=== PATIENT | female | born 1945 | race Caucasian/White ===

== ENCOUNTER 2017-01-11 10:19 | Outpatient (RCR) | payer MEDICARE ==
[~2017-01-11] VITALS: Ht 152.4 cm; Wt 64.4 kg
== END 2017-01-26 02:42 | disposition home or self-care (01) ==
LOC: DSME 10:19
PROVIDERS: ATTEND Pediatrics
DX: E11.9 Type 2 diabetes mellitus without complications; I10 Essential (primary) hypertension

== ENCOUNTER 2018-06-05 08:45 | Outpatient (CLI) | payer MEDICARE ==
[~2018-06-05] VITALS: Ht 149.9 cm; Wt 63.5 kg
[2018-06-05] MEDS ORDERED: POTA10TA10 PO (12:42)
[2018-06-05] MEDS ORDERED: SIMV20TA3 PO (12:42)
[2018-06-05] MEDS ORDERED: FOLI0.8T PO (12:42)
[2018-06-05] MEDS ORDERED: MULT-192 PO (12:42)
[2018-06-05] MEDS ORDERED: AMLO5TAB9 PO (12:42)
[2018-06-05] MEDS ORDERED: METO-395 PO (12:42)
[2018-06-05] MEDS ORDERED: CHOL200012 PO (12:42)
[2018-06-05] MEDS ORDERED: MAGN400T39 PO (12:42)
[2018-06-05] MEDS ORDERED: ASPI-586 PO (12:42)
[2018-06-05] MEDS ORDERED: NFBIOT1000 PO (12:42)
[2018-06-05] MEDS ORDERED: LOSA1TAB23 PO (12:42)
== END 2018-06-05 12:43 | disposition home or self-care (01) ==
LOC: PREOP 08:45
PROVIDERS: ATTEND Surgery
DX: Z01.818 Encounter for other preprocedural examination (principal)

== ENCOUNTER 2018-06-10 12:59 | Day surgery (SDC) | payer MEDICARE ==
[~2018-06-10] VITALS: Ht 149.9 cm; Wt 63.5 kg
[~2018-06-10 12:59] MED LIST: AMLO5TAB9 PO; ASPI-586 PO; CHOL200012 PO; FOLI0.8T PO; LOSA1TAB23 PO; MAGN400T39 PO; METO-395 PO; MULT-192 PO; NFBIOT1000 PO; POTA10TA10 PO; SIMV20TA3 PO
[2018-06-10] MEDS ORDERED: LACTATED RINGERS 1,000 ML IV ONE (13:04)
--- OUTSIDE RECORDS SUMMARY | 2018-06-10 13:04 | XMS REPORT | CCD ---
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 Name Role Phone PP Unavailable CCM Unavailable Summary Purpose Interface Exchange Insurance Providers Payer name Policy type / Coverage type Covered democrat ID Effective Begin Date Effective End Date WPS Medicare Part B Medicare Part B [id number] 2018 Unknown AETNA Medicare Part B [id number] Unknown Family history Sister Diagnosis Age At Onset Diabetes mellitus Type 2 Unknown Father Diagnosis Age At Onset Arthritis Unknown Mother Diagnosis Age At Onset Arthritis Unknown Social History Social History Element Codes Description Effective Dates Marital status Unknown Bill 02/25/2018 Number of children Unknown 2 3 pregnancies- 1 miscarriage 02/25/2018 Employment Unknown Retired 02/25/[address]: 607328057 Never smoker 02/25/[address]: 112654 Currently drinks alcohol 02/25/2018 Frequency of drinks SNOMED CT: 321469072 1-4 drinks per week 02/25/2018 Allergies, Adverse Reactions, Alerts Substance Reaction Codes Entered Date Inactivated Date Status * OTHER REACTION - SEE ANSWER BOX nausea Unknown 02/25/2018 No Inactive Date Active Past Medical History Illness Codes Condition Status Onset Date Resolved Date Dysphagia, pharyngoesophageal phase ICD-9: 787.24 ICD-10: R13.14 Active 05/22/2018 Unknown Impacted cerumen, right ear ICD-9: 380.4 ICD-10: H61.21 Active 02/26/2018 Unknown Diabetes Unknown Active 02/25/2018 Unknown Cough ICD-9: 786.2 ICD-10: R05 Active 02/25/2018 Unknown Essential (primary) hypertension ICD-9: 401.1 ICD-10: I10 Active 02/25/2018 Unknown Type 2 diabetes mellitus without complications ICD-9: 250.00 ICD-10: E11.9 Active 02/25/2018 Unknown Problems Condition Codes Effective Dates Condition Status Dysphagia, pharyngoesophageal phase ICD-9: 787.24 ICD-10: R13.14 05/22/2018 Active Impacted cerumen, right ear ICD-9: 380.4 ICD-10: H61.21 02/26/2018 Active Diabetes Unknown 02/25/2018 Active Cough ICD-9: 786.2 ICD-10: R05 02/25/2018 Active Essential (primary) hypertension ICD-9: 401.1 ICD-10: I10 02/25/2018 Active Type 2 diabetes mellitus without complications ICD-9: 250.00 ICD-10: E11.9 02/25/2018 Active Medications Medication Codes Instructions Start Date Stop Date Status Fill Instructions potassium chloride ER 10 mEq capsule,extended release RxNorm: 377944 6 Capsule(s) PO daily except Mon and Fri take 7 05/28/2018 No Stop Date Active Phenergan-Codeine 6.25 mg-10 mg/5 mL syrup RxNorm: 633936 5-10 Milliliter(s) PO Q6 as needed cough 02/25/2018 No Stop Date Active metoprolol succinate ER 100 mg tablet,extended release 24 hr RxNorm: 820984 2 Tablet(s) PO daily 02/25/2018 03/26/2018 Inactive Zyrtec-D 5 mg-120 mg tablet,extended release RxNorm: 9665020 1/2 Tablet(s) PO daily 02/25/2018 02/25/2018 Inactive Sudafed 30 mg tablet RxNorm: 1573256 1 Tablet(s) PO QAM 201703/11/2018 Inactive Zyrtec 5 mg tablet RxNorm: 4637385 1 Tablet(s) PO QAM 201703/11/2018 Inactive aspirin 81 mg tablet RxNorm: 160905 2 Tablet(s) PO daily No Start Date Active amlodipine 5 mg tablet RxNorm: 575208 1 Tablet(s) PO daily No Start Date Active biotin 1 mg tablet RxNorm: 547965 1 Tablet(s) PO daily No Start Date Active omeprazole 20 mg tablet,delayed release RxNorm: 058702 1 Tablet(s) PO daily No Start Date Active simvastatin 20 mg tablet RxNorm: 718539 1 Tablet(s) PO daily No Start Date Active Multiple Vitamin, Womens tablet RxNorm: 2 gummy chews Tablet(s) PO daily No Start Date Active metformin 500 mg tablet RxNorm: 746015 3 Tablet(s) PO daily No Start Date Active losartan 100 mg-hydrochlorothiazide 25 mg tablet RxNorm: 071650 1 Tablet(s) PO daily No Start Date Active magnesium RxNorm: 1 PO daily No Start Date Active Vitamin D3 2,000 unit tablet RxNorm: 807315 1 Tablet(s) PO daily No Start Date Active folic acid 0.8 mg capsule RxNorm: 388666 1 Capsule(s) PO daily No Start Date Active Phenergan-Codeine 6.25 mg-10 mg/5 mL syrup RxNorm: 516844 5-10 Milliliter(s) PO Q6 as needed cough No Start Date 2017 Inactive potassium chloride ER 10 mEq capsule,extended release RxNorm: 353713 6 Capsule(s) PO daily No Start Date 05/27/2018 Inactive Medication Administered No Medication Administered data Immunizations No Immunization data Assessments Condition Codes Effective Dates Dysphagia, pharyngoesophageal phase ICD-10: R13.14 ICD-9: 787.24 05/22/2018 Impacted cerumen, right ear ICD-10: H61.21 ICD-9: 380.4 02/26/2018 Type 2 diabetes mellitus without complications ICD-10: E11.9 ICD-9: 250.00 02/25/2018 Cough ICD-10: R05 ICD-9: 786.2 02/25/2018 Essential (primary) hypertension ICD-10: I10 ICD-9: 401.1 02/25/2018 Reason For Visit Reason For Visit Effective Dates Notes dysphagia 05/22/2018 diabetes mellitus 02/25/2018 Results Observation Observation Code Item Item Code Result Date Tsh Ord6 TSH (3rd IS) 1.15 uIU/mL 05/23/2018 Lipid Ord30 CHOL 153 mg/dL 05/23/2018 Lipid Ord30 HDL 51.0 mg/dl 05/23/2018 Lipid Ord30 TRIG 166 mg/dL 05/23/2018 Lipid Ord30 LDL 69 mg/dL 05/23/2018 Lipid Ord30 C/HDL 3.0 Ratio 05/23/2018 Comp Metabolic Hor096 NA 142 mEq/L 05/23/2018 Comp Metabolic Ffw644 K 3.2 mEq/L 05/23/2018 Comp Metabolic Amj659 CL 103 mEq/L 05/23/2018 Comp Metabolic Qol986 CO2 29.0 mEq/L 05/23/2018 Comp Metabolic Gka132 ANION GAP 13 05/23/2018 Comp Metabolic Alj474 GLUCOSE 132 mg/dL 05/23/2018 Comp Metabolic Dqk385 Creat 0.6 mg/dL 05/23/2018 Comp Metabolic Yhh647 eGFR 108 ml/min/1.73m2 05/23/2018 Comp Metabolic Oxv143 BUN 14 mg/dL 05/23/2018 Comp Metabolic Qet145 B/C Ratio 24.1 Ratio 05/23/2018 Comp Metabolic Uxh348 CALCIUM 9.3 mg/dL 05/23/2018 Comp Metabolic Zjx529 ALK PHOS 57 U/L 05/23/2018 Comp Metabolic Qsi735 AST(SGOT) 17 U/L 05/23/2018 Comp Metabolic Cxp208 ALT(SGPT) 17 U/L 05/23/2018 Comp Metabolic Uhl890 BILI T 0.8 mg/dL 05/23/2018 Comp Metabolic Wcb581 ALBUMIN 4.5 g/dL 05/23/2018 Comp Metabolic Oxi550 TPRO 6.8 g/dL 05/23/2018 Comp Metabolic Ixw155 GLOB 2.3 g/dL 05/23/2018 Comp Metabolic Ygr138 A/G Ratio 2.0 Ratio 05/23/2018 Comp Metabolic Oxy201 Osmo 285 mOsmo 05/23/2018 Cbc With Differential Ord2 WBC 4.73 K/ul 05/23/2018 Cbc With Differential Ord2 RBC 4.03 M/ul 05/23/2018 Cbc With Differential Ord2 HGB 13.5 g/dl 05/23/2018 Cbc With Differential Ord2 Neut% 51.2 % 05/23/2018 Cbc With Differential Ord2 HCT 39.2 % 05/23/2018 Cbc With Differential Ord2 Lymph% 33.4 % 05/23/2018 Cbc With Differential Ord2 MCV 97.3 fl 05/23/2018 Cbc With Differential Ord2 MCH 33.5 pg 05/23/2018 Cbc With Differential Ord2 Jessamine% 11.0 % 05/23/2018 Cbc With Differential Ord2 MCHC 34.4 pg 05/23/2018 Cbc With Differential Ord2 Eos% 4.0 % 05/23/2018 Cbc With Differential Ord2 Baso% 0.4 % 05/23/2018 Cbc With Differential Ord2 PLT 228 K/ul 05/23/2018 Cbc With Differential Ord2 RDW 12.6 % 05/23/2018 Cbc With Differential Ord2 Neut ABS# 2.42 K/ul 05/23/2018 Cbc With Differential Ord2 Lymph ABS# 1.58 K/ul 05/23/2018 Cbc With Differential Ord2 Jessamine ABS# 0.5 K/ul 05/23/2018 Cbc With Differential Ord2 Eos ABS# 0.2 K/ul 05/23/2018 Cbc With Differential Ord2 Baso ABS# 0.0 K/ul 05/23/2018 %Hba1C Hdp653 % HbA1c 67671-9 6.1 % 05/23/2018 %Hba1C Jdt274 Gluc Ave 128 mg/dL 05/23/2018 Microalbumin Nbw799 MicroAlb 4.7 mg/dL 05/23/2018 Review of Systems System Result Effective Dates Constitutional No recent illness 2018 Constitutional No chills 05/22/2018 Constitutional No fatigue 05/22/2018 Constitutional No fever 05/22/2018 Constitutional No insomnia 05/22/2018 Constitutional No malaise 05/22/2018 Eyes No vision change 05/22/2018 Ears/Nose/Throat/Neck No dizziness 2018 Ears/Nose/Throat/Neck No dysphagia 2018 Ears/Nose/Throat/Neck No headache 2018 Ears/Nose/Throat/Neck No hearing loss Ears/Nose/Throat/Neck No nasal allergies 05/22/2018 Ears/Nose/Throat/Neck No sore throat Ears/Nose/Throat/Neck No postnasal drip 05/22/2018 Cardiovascular No chest pain/pressure Cardiovascular No dyspnea 05/22/2018 Cardiovascular No edema 05/22/2018 Cardiovascular No exercise intolerance Cardiovascular No fatigue 05/22/2018 Respiratory No chest tightness 2018 Respiratory cough 05/22/2018 Respiratory No dyspnea 05/22/2018 Respiratory No pedal edema 05/22/2018 Gastrointestinal No abdominal pain 2018 Gastrointestinal No constipation 2018 Gastrointestinal No diarrhea 05/22/2018 Gastrointestinal No gastroesophageal reflux 05/22/2018 Gastrointestinal No nausea 05/22/2018 Gastrointestinal No vomiting 05/22/2018 Dermatologic No rash 05/22/2018 Dermatologic No sores 05/22/2018 Neurologic No dizziness 05/22/2018 Neurologic No neck pain 05/22/2018 Psychiatric No anxiety 05/22/2018 Psychiatric No depression 05/22/2018 Dermatologic pigmentation change 2018 Gastrointestinal dysphagia 05/22/2018 Constitutional No recent illness 2017 Constitutional No chills 02/25/2018 Constitutional No fatigue 02/25/2018 Constitutional No fever 02/25/2018 Constitutional No insomnia 02/25/2018 Constitutional No malaise 02/25/2018 Eyes No vision change 02/25/2018 Ears/Nose/Throat/Neck No dizziness 2017 Ears/Nose/Throat/Neck No dysphagia 2017 Ears/Nose/Throat/Neck No headache 2017 Ears/Nose/Throat/Neck No hearing loss Ears/Nose/Throat/Neck No nasal allergies 02/25/2018 Ears/Nose/Throat/Neck No sore throat Ears/Nose/Throat/Neck No postnasal drip 02/25/2018 Cardiovascular No chest pain/pressure Cardiovascular No dyspnea 02/25/2018 Cardiovascular No edema 02/25/2018 Cardiovascular No exercise intolerance Cardiovascular No fatigue 02/25/2018 Respiratory No chest tightness 2017 Respiratory cough 02/25/2018 Respiratory No dyspnea 02/25/2018 Respiratory No pedal edema 02/25/2018 Gastrointestinal No abdominal pain 2017 Gastrointestinal No constipation 2017 Gastrointestinal No diarrhea 02/25/2018 Gastrointestinal No gastroesophageal reflux 02/25/2018 Gastrointestinal No nausea 02/25/2018 Gastrointestinal No vomiting 02/25/2018 Genitourinary/Nephrology No dysuria 02/25 Genitourinary/Nephrology No nocturia Genitourinary/Nephrology No urinary incontinence 02/25/2018 Musculoskeletal No stiffness 02/25/2018 Musculoskeletal No swelling 02/25/2018 Musculoskeletal No muscle weakness 2017 Musculoskeletal No myalgias 02/25/2018 Dermatologic No rash 02/25/2018 Dermatologic No sores 02/25/2018 Neurologic No dizziness 02/25/2018 Neurologic No headache 02/25/2018 Neurologic No neck pain 02/25/2018 Neurologic No syncope 02/25/2018 Psychiatric No anxiety 02/25/2018 Psychiatric No depression 02/25/2018 Dermatologic pigmentation change 2017 Physical Exam Exam Name System Name Item Name Status Result Effective Dates Notes Full Exam - General 1994 Constitutional general appearance Development: well developed 05/22/2018 None Full Exam - General 1994 Constitutional general appearance Development: appears stated age 0105/22/2018 None Full Exam - General 1994 Constitutional general appearance Hygiene/Attention to Grooming: good hygiene 05/22/2018 None Full Exam - General 1994 Eyes conjunctiva /eyelids Overall: conjunctiva clear 05/22/2018 None Full Exam - General 1994 Eyes conjunctiva /eyelids Overall: cornea clear 05/22/2018 None Full Exam - General 1994 Eyes conjunctiva /eyelids Overall: eyelids normal 05/22/2018 None Full Exam - General 1994 Eyes pupils and irises Overall: pupils equal, round, reactive to light and accomodation 05/22/2018 None Full Exam - General 1994 Ears/Nose/Throat otoscopic exam Overall: external auditory canals clear 05/22/2018 None Full Exam - General 1994 Ears/Nose/Throat otoscopic exam Tympanic membrane: tympanosclerosis 05/22/2018 None Full Exam - General 1994 Ears/Nose/Throat lips/teeth/gingiva Overall: benign lips 05/22/2018 None Full Exam - General 1994 Ears/Nose/Throat lips/teeth/gingiva Overall: normal dentition 05/22/2018 None Full Exam - General 1994 Ears/Nose/Throat oral cavity/pharynx/larynx Overall: oral mucosa clear 05/22/2018 None Full Exam - General 1994 Ears/Nose/Throat oral cavity/pharynx/larynx Overall: oropharyngeal mucosa clear 05/22/2018 None Full Exam - General 1994 Ears/Nose/Throat oral cavity/pharynx/larynx Overall: hypopharynx benign 05/22/2018 None Full Exam - General 1994 Ears/Nose/Throat oral cavity/pharynx/larynx Overall: no masses 05/22/2018 None Full Exam - General 1994 Respiratory auscultation Overall: breath sounds clear bilaterally 05/22/2018 None Full Exam - General 1994 Respiratory respiratory effort/rhythm Overall: no retractions 05/22/2018 None Full Exam - General 1994 Respiratory respiratory effort/rhythm Overall: normal rate 05/22/2018 None Full Exam - General 1994 Cardiovascular extremities Overall: no clubbing 05/22/2018 None Full Exam - General 1994 Cardiovascular auscultation of heart Overall: regular rate 05/22/2018 None Full Exam - General 1994 Cardiovascular auscultation of heart Overall: normal heart sounds 05/22/2018 None Full Exam - General 1994 Abdomen abdominal exam Overall: no tenderness 05/22/2018 None Full Exam - General 1994 Abdomen abdominal exam Overall: normal bowel sounds 05/22/2018 None Full Exam - General 1994 Musculoskeletal head and neck Overall: head atraumatic 05/22/2018 None Full Exam - General 1994 Musculoskeletal head and neck Overall: cervical spine benign 05/22/2018 None Full Exam - General 1994 Neurologic cranial nerves Overall: crainial nerves 2 - 12 grossly intact 05/22/2018 None Full Exam - General 1994 Psychiatric orientation/consciousness Overall: oriented to person, place and time 05/22/2018 None Full Exam - General 1994 Psychiatric mood and affect Overall: normal mood and affect 05/22/2018 None Full Exam - General 1994 Constitutional general appearance Development: well developed 02/25/2018 None Full Exam - General 1994 Constitutional general appearance Development: appears stated age 1002/25/2018 None Full Exam - General 1994 Constitutional general appearance Hygiene/Attention to Grooming: good hygiene 02/25/2018 None Full Exam - General 1994 Eyes conjunctiva /eyelids Overall: conjunctiva clear 02/25/2018 None Full Exam - General 1994 Eyes conjunctiva /eyelids Overall: cornea clear 02/25/2018 None Full Exam - General 1994 Eyes conjunctiva /eyelids Overall: eyelids normal 02/25/2018 None Full Exam - General 1994 Eyes pupils and irises Overall: pupils equal, round, reactive to light and accomodation 02/25/2018 None Full Exam - General 1994 Ears/Nose/Throat otoscopic exam Overall: external auditory canals clear 02/25/2018 None Full Exam - General 1994 Ears/Nose/Throat lips/teeth/gingiva Overall: benign lips 02/25/2018 None Full Exam - General 1994 Ears/Nose/Throat lips/teeth/gingiva Overall: normal dentition 02/25/2018 None Full Exam - General 1994 Ears/Nose/Throat oral cavity/pharynx/larynx Overall: oral mucosa clear 02/25/2018 None Full Exam - General 1994 Ears/Nose/Throat oral cavity/pharynx/larynx Overall: oropharyngeal mucosa clear 02/25/2018 None Full Exam - General 1994 Ears/Nose/Throat oral cavity/pharynx/larynx Overall: hypopharynx benign 02/25/2018 None Full Exam - General 1994 Ears/Nose/Throat oral cavity/pharynx/larynx Overall: no masses 02/25/2018 None Full Exam - General 1994 Respiratory auscultation Overall: breath sounds clear bilaterally 02/25/2018 None Full Exam - General 1994 Respiratory respiratory effort/rhythm Overall: no retractions 02/25/2018 None Full Exam - General 1994 Respiratory respiratory effort/rhythm Overall: normal rate 02/25/2018 None Full Exam - General 1994 Cardiovascular extremities Overall: no clubbing 02/25/2018 None Full Exam - General 1994 Cardiovascular auscultation of heart Overall: regular rate 02/25/2018 None Full Exam - General 1994 Cardiovascular auscultation of heart Overall: normal heart sounds 02/25/2018 None Full Exam - General 1994 Abdomen abdominal exam Overall: no tenderness 02/25/2018 None Full Exam - General 1994 Abdomen abdominal exam Overall: normal bowel sounds 02/25/2018 None Full Exam - General 1994 Lymphatic neck nodes Overall: anterior cervical chain benign 02/25/2018 None Full Exam - General 1994 Lymphatic neck nodes Overall: posterior cervical chain benign 02/25/2018 None Full Exam - General 1994 Musculoskeletal spine, ribs and pelvis Overall: spine benign 02/25/2018 None Full Exam - General 1994 Musculoskeletal spine, ribs and pelvis Overall: sacroiliac joint benign 02/25/2018 None Full Exam - General 1994 Musculoskeletal spine, ribs and pelvis Overall: good posture 02/25/2018 None Full Exam - General 1994 Musculoskeletal head and neck Overall: head atraumatic 02/25/2018 None Full Exam - General 1994 Musculoskeletal head and neck Overall: cervical spine benign 02/25/2018 None Full Exam - General 1994 Neurologic deep tendon reflexes Overall: deep tendon reflexes intact 02/25/2018 None Full Exam - General 1994 Neurologic cranial nerves Overall: crainial nerves 2 - 12 grossly intact 02/25/2018 None Full Exam - General 1994 Psychiatric orientation/consciousness Overall: oriented to person, place and time 02/25/2018 None Full Exam - General 1994 Psychiatric mood and affect Overall: normal mood and affect 02/25/2018 None Full Exam - General 1994 Ears/Nose/Throat otoscopic exam Tympanic membrane: tympanosclerosis 02/25/2018 None Full Exam - General 1994 Integument inspection of skin Pigmentation: hemosideran pigment changes 02/25/2018 bilateral lower legs at mid calf to ankles Procedures No Procedures data Vital Signs Date Vital 05/22/2018 Blood Pressure 1: 122/72 Code : 8480-6 BMI: 28.7 Code : 61937-8 Heart Rate 1 : 72 bpm Height: 4'11" SpO2: 97% Weight: 142 lbs 02/25/2018 Blood Pressure 1: 122/82 Code : 8480-6 BMI: 28.7 Code : 64614-6 Heart Rate 1 : 65 bpm Height: 4'11" SpO2: 98% Weight: 142 lbs Functional Status No Functional Status data History of Present Illness Symptom Name Status Result Effective Date Notes Location in the epigastric area 05/22/2018 None Quality difficulty with hard solids 05/22/2018 mostly meat but all foods cause it Quality worsening None Onset of Symptom 1 months ago 05/22/2018 None Limitation on Activities does not limit oral intake 05/22/2018 None Pertinent Findings Denies cough 05/22/2018 None Pertinent Findings emesis 05/22/2018 at times Pertinent Findings Denies heartburn 05/22/2018 None Pertinent Findings regurgitation 05/22/2018 None diabetes mellitus Quality NIDDM 02/25/2018 None diabetes mellitus Glucose monitoring occasional glucose testing 02/25/2018 weekly diabetes mellitus Pertinent Findings numbness 02/25/2018 occ to right foot toes cough Location in the throat 02/25/2018 None cough Quality intermittent 02/25/2018 None cough Onset and Resolution sudden in onset 02/25/2018 None cough Onset of Symptom 2 days ago 02/25/2018 None cough Frequency of Episodes hourly 02/25/2018 None cough Pertinent Findings Denies dyspnea 02/25/2018 None cough Pertinent Findings Denies fever 02/25/2018 None diabetes mellitus Severity mild 02/25/2018 None diabetes mellitus Quality non-insulin dependent 02/25/2018 None diabetes mellitus Test results fasting glucose 115-140 02/25/2018 in the morning diabetes mellitus Test results HgbA1c level pt does not remember the #, but it was "good" per her report 02/25/2018 the test was done in November of this year Advance Directives No Advance Directive data Encounters Encounter Performer Location Codes Date () [address] EST. PATIENT, LEVEL III Diagnosis: Dysphagia, pharyngoesophageal phase[ICD10: R13.14] [facility] MD, [facility] CPT-4: 03539 05/22/2018 ([id number]) Miscellaneous no charge Diagnosis: Impacted cerumen, right ear[ICD10: H61.21] [facility] CPT-4: 33869 02/26/2018 ([id number]) OFFICE VISIT, NEW - LEVEL 4 Diagnosis: Essential (primary) hypertension[ICD10: I10] Diagnosis: Type 2 diabetes mellitus without complications[ICD10: E11.9] Diagnosis: Cough[ICD10: R05] [facility] CPT-4: 85308 02/25/2018 Plan of Care Planned Activity Notes Codes Status Date Visit Plan: Dysphagia - worse with bolus of food - I have recommended a referral to Dr. Tsang for EGD, continue with PPI. 05/22/2018 App[facility]ment: [phone] [facility] [place] (15 min) Moderate 05/22/2018 Patient Education: Patient Medication Summary Completed 05/22/2018 Appointment: Nurse Visit 02/26/2018 Patient Education: Patient Medication Summary Completed 02/26/2018 Visit Plan: Hypertension - well controlled - continue with current medications, continue with no added salt diet. Pt has been encouraged to exercise daily. The pt has been advised to call the office if there are any acute concerns about change in blood pressure readings at home. Diabetes Mellitus - controlled - per recent FSBS reports. I have recommended for the patient to have follow up labs prior to the next office visit. The patient has been instructed to continue with current medications as previously directed, continue with regular FSBS monitoring to assure continued control of diabetes. Pt to call for any acute concerns, complaints, or if the blood glucose readings are starting to become less controlled. Hemosiderin pigment changes - recommended pt to use OTC cream to legs. Congestion - use OTC corcidin. 02/25/2018 Visit Plan: Hypertension - well controlled - continue with current medications, continue with no added salt diet. Pt has been encouraged to exercise daily. The pt has been advised to call the office if there are any acute concerns about change in blood pressure readings at home. Diabetes Mellitus - controlled - per recent FSBS reports. I have recommended for the patient to have follow up labs prior to the next office visit. The patient has been instructed to continue with current medications as previously directed, continue with regular FSBS monitoring to assure continued control of diabetes. Pt to call for any acute concerns, complaints, or if the blood glucose readings are starting to become less controlled. Hemosiderin pigment changes - recommended pt to use OTC cream to legs. Congestion - use OTC corcidin. 02/25/2018 Appointment: [facility] [phone] [facility] [place] [place] New Patient 02/25/2018 Patient Education: Patient Medication Summary Completed 02/25/2018 Patient Education: Diabetes Completed 02/25/2018 Appointment: [facility] [phone] [facility] [place] [place] New Patient 02/03/2018 Instructions Comment cream with retinol in it - higher dose retinol cream - like an overnight cream will often have higher retinol products - and you can try this to see if it will help to decrease the pigmentation on your lower legs. use corcidin HBP daily while having the cough and congestion - if not having any improvement in the next 5 days, then stop this and take 1/2 of the zyrtec D - watch your blood pressure if you do take the zyrtec and call the office or send a portal message if you have any blood pressure concerns. let us know if the cough and congestion do not improve. sign a release of information for the office to get a copy of your last blood work. . Hypertension - well controlled - continue with current medications, continue with no added salt diet. Pt has been encouraged to exercise daily. The pt has been advised to call the office if there are any acute concerns about change in blood pressure readings at home. Diabetes Mellitus - controlled - per recent FSBS reports. I have recommended for the patient to have follow up labs prior to the next office visit. The patient has been instructed to continue with current medications as previously directed, continue with regular FSBS monitoring to assure continued control of diabetes. Pt to call for any acute concerns, complaints, or if the blood glucose readings are starting to become less controlled. Hemosiderin pigment changes - recommended pt to use OTC cream to legs. Congestion - use OTC corcidin. cream with retinol in it - higher dose retinol cream - like an overnight cream will often have higher retinol products - and you can try this to see if it will help to decrease the pigmentation on your lower legs. use corcidin HBP daily while having the cough and congestion - if not having any improvement in the next 5 days, then stop this and take 1/2 of the zyrtec D - watch your blood pressure if you do take the zyrtec and call the office or send a portal message if you have any blood pressure concerns. let us know if the cough and congestion do not improve. sign a release of information for the office to get a copy of your last blood work. . Hypertension - well controlled - continue with current medications, continue with no added salt diet. Pt has been encouraged to exercise daily. The pt has been advised to call the office if there are any acute concerns about change in blood pressure readings at home. Diabetes Mellitus - controlled - per recent FSBS reports. I have recommended for the patient to have follow up labs prior to the next office visit. The patient has been instructed to continue with current medications as previously directed, continue with regular FSBS monitoring to assure continued control of diabetes. Pt to call for any acute concerns, complaints, or if the blood glucose readings are starting to become less controlled. Hemosiderin pigment changes - recommended pt to use OTC cream to legs. Congestion - use OTC corcidin. . Dysphagia - worse with bolus of food - I have recommended a referral to Dr. Tsang for EGD, continue with PPI.
--- OUTSIDE RECORDS SUMMARY | 2018-06-10 13:04 | XMS REPORT | CCD ---
Author Author [facility]aire Box Organization [facility] Address [address] [place] [address] Phone Care Team Providers Care Lead Technologist In Cytogenetics Name Role Phone PP Unavailable CCM Unavailable Summary Purpose Interface Exchange Insurance Providers Payer name Policy type / Coverage type Covered constitution party ID Effective Begin Date Effective End Date WPS Medicare Part B Medicare Part B [id number] 2018 Unknown AETNA Medicare Part B [id number] Unknown Family history Sister Diagnosis Age At Onset Diabetes mellitus Type 2 Unknown Father Diagnosis Age At Onset Arthritis Unknown Mother Diagnosis Age At Onset Arthritis Unknown Social History Social History Element Codes Description Effective Dates Marital status Unknown Bill 02/25/2018 Number of children Unknown 2 3 pregnancies- 1 miscarriage 02/25/2018 Employment Unknown Retired 02/25/[address]: 860403115 Never smoker 02/25/[address]: 151825 Currently drinks alcohol 02/25/2018 Frequency of drinks SNOMED CT: 829327520 1-4 drinks per week 02/25/2018 Allergies, Adverse [...] Start Date Stop Date Status Fill Instructions Phenergan-Codeine 6.25 mg-10 mg/5 mL syrup RxNorm: 699959 5-10 Milliliter(s) PO Q6 as needed cough 02/25/2018 No Stop Date Active metoprolol succinate ER 100 mg tablet,extended release 24 hr RxNorm: 421751 2 Tablet(s) PO daily 02/25/2018 03/26/2018 Inactive Zyrtec-D 5 mg-120 mg tablet,extended release RxNorm: 2870009 1/2 Tablet(s) PO daily 02/25/2018 02/25/2018 Inactive Sudafed 30 mg tablet RxNorm: 2638674 1 Tablet(s) PO QAM 201703/11/2018 Inactive Zyrtec 5 mg tablet RxNorm: 6241104 1 Tablet(s) PO QAM 201703/11/2018 Inactive aspirin 81 mg tablet RxNorm: 560774 2 Tablet(s) PO daily No Start Date Active amlodipine 5 mg tablet RxNorm: 279407 1 Tablet(s) PO daily No Start Date Active biotin 1 mg tablet RxNorm: 687764 1 Tablet(s) PO daily No Start Date Active omeprazole 20 mg tablet,delayed release RxNorm: 881481 1 Tablet(s) PO daily No Start Date Active simvastatin 20 mg tablet RxNorm: 513422 1 Tablet(s) PO daily No Start Date Active Multiple Vitamin, Womens tablet RxNorm: 2 gummy chews Tablet(s) PO daily No Start Date Active metformin 500 mg tablet RxNorm: 071588 3 Tablet(s) PO daily No Start Date Active losartan 100 mg-hydrochlorothiazide 25 mg tablet RxNorm: 905676 1 Tablet(s) PO daily No Start Date Active magnesium RxNorm: 1 PO daily No Start Date Active Vitamin D3 2,000 unit tablet RxNorm: 821639 1 Tablet(s) PO daily No Start Date Active potassium chloride ER 10 mEq capsule,extended release RxNorm: 625667 6 Capsule(s) PO daily No Start Date Active folic acid 0.8 mg capsule RxNorm: 396933 1 Capsule(s) PO daily No Start Date Active Phenergan-Codeine 6.25 mg-10 mg/5 mL syrup RxNorm: 584122 5-10 Milliliter(s) PO Q6 as needed cough No Start Date 2017 Inactive Medication Administered No Medication Administered data Immunizations No Immunization data Assessments Condition Codes Effective Dates Dysphagia, pharyngoesophageal phase ICD-10: R13.14 ICD-9: 787.24 05/22/2018 Impacted cerumen, right ear ICD-10: H61.21 ICD-9: 380.4 02/26/2018 Essential (primary) hypertension ICD-10: I10 ICD-9: 401.1 02/25/2018 Cough ICD-10: R05 ICD-9: 786.2 02/25/2018 Type 2 diabetes mellitus without complications ICD-10: E11.9 ICD-9: 250.00 02/25/2018 Reason For Visit Reason For Visit Effective Dates Notes dysphagia 05/22/2018 diabetes mellitus 02/25/2018 Results Observation Observation Code Item Item Code Result Date Lipid Ord30 CHOL 153 mg/dL 05/23/2018 Lipid Ord30 HDL 51.0 mg/dl 05/23/2018 Lipid Ord30 TRIG 166 mg/dL 05/23/2018 Lipid Ord30 LDL 69 mg/dL 05/23/2018 Lipid Ord30 C/HDL 3.0 Ratio 05/23/2018 Comp Metabolic Fas393 NA 142 mEq/L 05/23/2018 Comp Metabolic Pte664 K 3.2 mEq/L 05/23/2018 Comp Metabolic Qlq542 CL 103 mEq/L 05/23/2018 Comp Metabolic Pvl034 CO2 29.0 mEq/L 05/23/2018 Comp Metabolic Szn322 ANION GAP 13 05/23/2018 Comp Metabolic Bgh167 GLUCOSE 132 mg/dL 05/23/2018 Comp Metabolic Ttj773 Creat 0.6 mg/dL 05/23/2018 Comp Metabolic Ytx344 eGFR 108 ml/min/1.73m2 05/23/2018 Comp Metabolic Aii421 BUN 14 mg/dL 05/23/2018 Comp Metabolic Jkm463 B/C Ratio 24.1 Ratio 05/23/2018 Comp Metabolic Gsf639 CALCIUM 9.3 mg/dL 05/23/2018 Comp Metabolic Nuh788 ALK PHOS 57 U/L 05/23/2018 Comp Metabolic Thz604 AST(SGOT) 17 U/L 05/23/2018 Comp Metabolic Ikx765 ALT(SGPT) 17 U/L 05/23/2018 Comp Metabolic Ibw028 BILI T 0.8 mg/dL 05/23/2018 Comp Metabolic Fgj363 ALBUMIN 4.5 g/dL 05/23/2018 Comp Metabolic Bfr173 TPRO 6.8 g/dL 05/23/2018 Comp Metabolic Rit433 GLOB 2.3 g/dL 05/23/2018 Comp Metabolic Gje266 A/G Ratio 2.0 Ratio 05/23/2018 Comp Metabolic Gps517 Osmo 285 mOsmo 05/23/2018 Review of Systems System Result Effective [...] Code : 8480-6 BMI: 28.7 Code : 35441-7 Heart Rate 1 : 72 bpm Height: 4'11" SpO2: 97% Weight: 142 lbs 02/25/2018 Blood Pressure 1: 122/82 Code : 8480-6 BMI: 28.7 Code : 58199-1 Heart Rate 1 : 65 bpm Height: [...] data Encounters Encounter Performer Location Codes Date (57881) 70631 EST. PATIENT, LEVEL III Diagnosis: Dysphagia, pharyngoesophageal phase[ICD10: R13.14] Blaire Box MD, [facility] CPT-4: 30223 05/22/2018 ([id number]) Miscellaneous no charge Diagnosis: Impacted cerumen, right ear[ICD10: H61.21] [facility] Box MD, [facility] CPT-4: 91131 02/26/2018 ([id number]) OFFICE VISIT, NEW - LEVEL 4 Diagnosis: Essential (primary) hypertension[ICD10: I10] Diagnosis: Type 2 diabetes mellitus without complications[ICD10: E11.9] Diagnosis: Cough[ICD10: R05] Blaire Box MD, [facility] CPT-4: 91974 02/25/2018 Plan of Care Planned Activity Notes Codes Status Date Visit Plan: Dysphagia - worse with bolus of food - I have recommended a referral to Dr. Tsang for EGD, continue with PPI. 05/22/2018 Appointment: Blaire Box WPtel: [address] [place], [place] [id number] (15 min) Moderate 05/22/2018 Patient Education: Patient [...] corcidin. 02/25/2018 [facility]ment: [facility] [address] [facility] [place] New Patient 02/25/2018 Patient Education: Patient Medication Summary Completed 02/25/2018 Patient Education: Diabetes Completed 02/25/2018 Appointment: [facility] [address] [facility] [place] New Patient 02/03/2018 Instructions Comment cream [...]
--- OUTSIDE RECORDS SUMMARY | 2018-06-10 13:05 | XMS REPORT | CCD ---
Author Author [facility] Box Organization [facility] Address [address] [place] [address] Phone Care Team Providers Care Clock Repairer Name Role Phone PP Unavailable CCM Unavailable Summary Purpose Interface Exchange Insurance Providers Payer name Policy type / Coverage type Covered constitution party ID Effective Begin Date Effective End Date WPS Medicare Part B Medicare Part B [id number] 2018 Unknown AETNA Medicare Part B [id number] Unknown Family history Sister Diagnosis Age At Onset Diabetes mellitus Type 2 Unknown Father Diagnosis Age At Onset Arthritis Unknown Mother Diagnosis Age At Onset Arthritis Unknown Social History Social History Element Codes Description Effective Dates Marital status Unknown Bill 02/25/2018 Number of children Unknown 2 3 pregnancies- 1 miscarriage 02/25/2018 Employment Unknown Retired 02/25/[address]: 092509089 Never smoker 02/25/[address]: 086928 Currently drinks alcohol 02/25/2018 Frequency of drinks SNOMED CT: 591436590 1-4 drinks per week 02/25/2018 Allergies, Adverse [...] Phenergan-Codeine 6.25 mg-10 mg/5 mL syrup RxNorm: 133157 5-10 Milliliter(s) PO Q6 as needed cough 02/25/2018 No Stop Date Active metoprolol succinate ER 100 mg tablet,extended release 24 hr RxNorm: 839803 2 Tablet(s) PO daily 02/25/2018 03/26/2018 Inactive Zyrtec-D 5 mg-120 mg tablet,extended release RxNorm: 5062149 1/2 Tablet(s) PO daily 02/25/2018 02/25/2018 Inactive Sudafed 30 mg tablet RxNorm: 5957682 1 Tablet(s) PO QAM 201703/11/2018 Inactive Zyrtec 5 mg tablet RxNorm: 3602168 1 Tablet(s) PO QAM 201703/11/2018 Inactive aspirin 81 mg tablet RxNorm: 960154 2 Tablet(s) PO daily No Start Date Active amlodipine 5 mg tablet RxNorm: 243891 1 Tablet(s) PO daily No Start Date Active biotin 1 mg tablet RxNorm: 351685 1 Tablet(s) PO daily No Start Date Active omeprazole 20 mg tablet,delayed release RxNorm: 818940 1 Tablet(s) PO daily No Start Date Active simvastatin 20 mg tablet RxNorm: 071846 1 Tablet(s) PO daily No Start Date Active Multiple Vitamin, Womens tablet RxNorm: 2 gummy chews Tablet(s) PO daily No Start Date Active metformin 500 mg tablet RxNorm: 553010 3 Tablet(s) PO daily No Start Date Active losartan 100 mg-hydrochlorothiazide 25 mg tablet RxNorm: 970847 1 Tablet(s) PO daily No Start Date Active magnesium RxNorm: 1 PO daily No Start Date Active Vitamin D3 2,000 unit tablet RxNorm: 859811 1 Tablet(s) PO daily No Start Date Active potassium chloride ER 10 mEq capsule,extended release RxNorm: 401162 6 Capsule(s) PO daily No Start Date Active folic acid 0.8 mg capsule RxNorm: 621246 1 Capsule(s) PO daily No Start Date Active Phenergan-Codeine 6.25 mg-10 mg/5 mL syrup RxNorm: 324574 5-10 Milliliter(s) PO Q6 as needed cough [...] Notes dysphagia 05/22/2018 diabetes mellitus 02/25/2018 Results No Results data Review of Systems System Result Effective Dates [...] Code : 8480-6 BMI: 28.7 Code : 60856-2 Heart Rate 1 : 72 bpm Height: 4'11" SpO2: 97% Weight: 142 lbs 02/25/2018 Blood Pressure 1: 122/82 Code : 8480-6 BMI: 28.7 Code : 82630-9 Heart Rate 1 : 65 bpm Height: [...] Encounters Encounter Performer Location Codes Date () 54140 EST. PATIENT, LEVEL III Diagnosis: Dysphagia, pharyngoesophageal phase[ICD10: R13.14] Blaire Box MD, [facility] CPT-4: 38660 05/22/2018 ([id number]) Miscellaneous no charge Diagnosis: Impacted cerumen, right ear[ICD10: H61.21] Blaire Box MD, [facility] CPT-4: 53321 02/26/2018 (05841) OFFICE VISIT, NEW - LEVEL 4 Diagnosis: Essential (primary) hypertension[ICD10: I10] Diagnosis: Type 2 diabetes mellitus without complications[ICD10: E11.9] Diagnosis: Cough[ICD10: R05] Blaire Box MD, [facility] CPT-4: 38630 02/25/2018 Plan of Care Planned Activity Notes Codes Status Date Visit Plan: Dysphagia - worse with bolus of food - I have recommended a referral to Dr. Tsang for EGD, continue with PPI. 05/22/2018 Patient Education: Patient Medication Summary Completed [...] OTC corcidin. 02/25/2018 Appointment: Blaire Box WPtel: [facility] [place] New Patient 02/25/2018 Patient Education: Patient Medication Summary Completed 02/25/2018 Patient Education: Diabetes Completed 02/25/2018 Appointment: Blaire Box WPtel: [address] [facility] [place] New Patient 02/03/2018 Instructions Comment cream [...]
--- OUTSIDE RECORDS SUMMARY | 2018-06-10 13:05 | XMS REPORT | CCD ---
Author Author [facility] Box Organization [facility] Address [address] [place] [address] Phone Care Team Providers Care Blood Tester Name Role Phone PP Unavailable CCM Unavailable Summary Purpose Interface Exchange Insurance Providers Payer name Policy type / Coverage type Covered libertarian ID Effective Begin Date Effective End Date WPS Medicare Part B Medicare Part B [id number] 2018 Unknown AETNA Medicare Part B [id number] Unknown Family history Sister Diagnosis Age At Onset Diabetes mellitus Type 2 Unknown Father Diagnosis Age At Onset Arthritis Unknown Mother Diagnosis Age At Onset Arthritis Unknown Social History Social History Element Codes Description Effective Dates Marital status Unknown Bill 02/25/2018 Number of children Unknown 2 3 pregnancies- 1 miscarriage 02/25/2018 Employment Unknown Retired 02/25/[address]: 627738428 Never smoker 02/25/[address]: 441867 Currently drinks alcohol 02/25/2018 Frequency of drinks SNOMED CT: 393721224 1-4 drinks per week 02/25/2018 Allergies, Adverse Reactions, Alerts Substance Reaction Codes Entered Date Inactivated Date Status * OTHER REACTION - SEE ANSWER BOX nausea Unknown 02/25/2018 No Inactive Date Active Past Medical History Illness Codes Condition Status Onset Date Resolved Date Impacted cerumen, right ear ICD-9: 380.4 ICD-10: H61.21 Active 02/26/2018 Unknown Diabetes Unknown Active 02/25/2018 Unknown Cough ICD-9: 786.2 ICD-10: R05 Active 02/25/2018 Unknown Essential (primary) hypertension ICD-9: 401.1 ICD-10: I10 Active 02/25/2018 Unknown Type 2 diabetes mellitus without complications ICD-9: 250.00 ICD-10: E11.9 Active 02/25/2018 Unknown Problems Condition Codes Effective Dates Condition Status Impacted cerumen, right ear ICD-9: 380.4 ICD-10: H61.21 02/26/2018 Active Diabetes Unknown 02/25/2018 Active Cough ICD-9: 786.2 ICD-10: R05 02/25/2018 Active Essential (primary) hypertension ICD-9: 401.1 ICD-10: I10 02/25/2018 Active Type 2 diabetes mellitus without complications ICD-9: 250.00 ICD-10: E11.9 02/25/2018 Active Medications Medication Codes Instructions Start Date Stop Date Status Fill Instructions Sudafed 30 mg tablet RxNorm: 4943382 1 Tablet(s) PO QAM 201703/11/2018 Active Phenergan-Codeine 6.25 mg-10 mg/5 mL syrup RxNorm: 480474 5-10 Milliliter(s) PO Q6 as needed cough 02/25/2018 No Stop Date Active Zyrtec 5 mg tablet RxNorm: 6757105 1 Tablet(s) PO QAM 201703/11/2018 Active metoprolol succinate ER 100 mg tablet,extended release 24 hr RxNorm: 486925 2 Tablet(s) PO daily 02/25/2018 03/26/2018 Active Zyrtec-D 5 mg-120 mg tablet,extended release RxNorm: 6101884 1/2 Tablet(s) PO daily 02/25/2018 02/25/2018 Inactive aspirin 81 mg tablet RxNorm: 051528 2 Tablet(s) PO daily No Start Date Active amlodipine 5 mg tablet RxNorm: 051375 1 Tablet(s) PO daily No Start Date Active biotin 1 mg tablet RxNorm: 470115 1 Tablet(s) PO daily No Start Date Active omeprazole 20 mg tablet,delayed release RxNorm: 433692 1 Tablet(s) PO daily No Start Date Active simvastatin 20 mg tablet RxNorm: 195282 1 Tablet(s) PO daily No Start Date Active Multiple Vitamin, Womens tablet RxNorm: 2 gummy chews Tablet(s) PO daily No Start Date Active metformin 500 mg tablet RxNorm: 077322 3 Tablet(s) PO daily No Start Date Active losartan 100 mg-hydrochlorothiazide 25 mg tablet RxNorm: 822190 1 Tablet(s) PO daily No Start Date Active magnesium RxNorm: 1 PO daily No Start Date Active Vitamin D3 2,000 unit tablet RxNorm: 247480 1 Tablet(s) PO daily No Start Date Active potassium chloride ER 10 mEq capsule,extended release RxNorm: 806275 6 Capsule(s) PO daily No Start Date Active folic acid 0.8 mg capsule RxNorm: 343883 1 Capsule(s) PO daily No Start Date Active Phenergan-Codeine 6.25 mg-10 mg/5 mL syrup RxNorm: 478981 5-10 Milliliter(s) PO Q6 as needed cough No Start Date 2017 Inactive Medication Administered No Medication Administered data Immunizations No Immunization data Assessments Condition Codes Effective Dates Impacted cerumen, right ear ICD-10: H61.21 ICD-9: 380.4 02/26/2018 Type 2 diabetes mellitus without complications ICD-10: E11.9 ICD-9: 250.00 02/25/2018 Cough ICD-10: R05 ICD-9: 786.2 02/25/2018 Essential (primary) hypertension ICD-10: I10 ICD-9: 401.1 02/25/2018 Reason For Visit Reason For Visit Effective Dates Notes diabetes mellitus 02/25/2018 Results No Results data Review of Systems System Result Effective Dates Constitutional No recent illness 2017 Constitutional No [...] tympanosclerosis 02/25/2018 None Full Exam - General 1995 Integument inspection of skin Pigmentation: hemosideran pigment changes 02/25/2018 bilateral lower legs at mid calf to ankles Procedures No Procedures data Vital Signs Date Vital 02/25/2018 Blood Pressure 1: 122/82 Code : 8480-6 BMI: 28.7 Code : 48852-1 Heart Rate 1 : 65 bpm Height: 4'11" SpO2: 98% Weight: 142 lbs Functional Status No Functional Status data History of Present Illness Symptom Name Status Result Effective Date Notes diabetes mellitus Quality NIDDM 02/25/2018 None diabetes [...] Encounters Encounter Performer Location Codes Date () Miscellaneous no charge Diagnosis: Impacted cerumen, right ear[ICD10: H61.21] [facility] CPT-4: 10544 02/26/2018 ([id number]) OFFICE VISIT, NEW - LEVEL 4 Diagnosis: Essential (primary) hypertension[ICD10: I10] Diagnosis: Type 2 diabetes mellitus without complications[ICD10: E11.9] Diagnosis: Cough[ICD10: R05] [facility] CPT-4: 94464 02/25/2018 Plan of Care Planned Activity Notes Codes Status Date Patient Education: Patient Medication Summary Completed 02/26/2018 Appointment: Blaire Box WPtel: [address] [place], [place] [id number] [place] New Patient 02/25/2018 Patient Education: Patient Medication Summary Completed 02/25/2018 Patient Education: Diabetes Completed 02/25/2018 Appointment: Blaire Box WPtel: [address] [place], [place] [address] New Patient 02/03/2018 Instructions No Instructions
--- OUTSIDE RECORDS SUMMARY | 2018-06-10 13:05 | XMS REPORT | CCD ---
Author Author Blaire Box Organization [facility] Address [address] [place] [address] Phone Care Team Providers Care Sanitation Truck Driver Name Role Phone PP Unavailable CCM Unavailable Summary Purpose Interface Exchange Insurance Providers Payer name Policy type / Coverage type Covered democrat ID Effective Begin Date Effective End Date WPS Medicare Part B Medicare Part B [id number] 2018 Unknown AETNA Medicare Part B [id number] Unknown Family history Sister Diagnosis Age At Onset Diabetes mellitus Type 2 Unknown Father Diagnosis Age At Onset Arthritis Unknown Mother Diagnosis Age At Onset Arthritis Unknown Social History Social History Element Codes Description Effective Dates Marital status Unknown Bill 02/25/2018 Number of children Unknown 2 3 pregnancies- 1 miscarriage 02/25/2018 Employment Unknown Retired 02/25/[address]: 313977425 Never smoker 02/25/[address]: 547117 Currently drinks alcohol 02/25/2018 Frequency of drinks SNOMED CT: 953772156 1-4 drinks per week 02/25/2018 Allergies, Adverse Reactions, Alerts Substance Reaction Codes Entered Date Inactivated Date Status * OTHER REACTION - SEE ANSWER BOX nausea Unknown 02/25/2018 No Inactive Date Active Past Medical History Illness Codes Condition Status Onset Date Resolved Date Diabetes Unknown Active 02/25/2018 Unknown Cough ICD-9: 786.2 ICD-10: R05 Active 02/25/2018 Unknown Essential (primary) hypertension ICD-9: 401.1 ICD-10: I10 Active 02/25/2018 Unknown Type 2 diabetes mellitus without complications ICD-9: 250.00 ICD-10: E11.9 Active 02/25/2018 Unknown Problems Condition Codes Effective Dates Condition Status Diabetes Unknown 02/25/2018 Active Cough ICD-9: 786.2 ICD-10: R05 02/25/2018 Active Essential (primary) hypertension ICD-9: 401.1 ICD-10: I10 02/25/2018 Active Type 2 diabetes mellitus without complications ICD-9: 250.00 ICD-10: E11.9 02/25/2018 Active Medications Medication Codes Instructions Start Date Stop Date Status Fill Instructions Sudafed 30 mg tablet RxNorm: 3940107 1 Tablet(s) PO QAM 201703/11/2018 Active Phenergan-Codeine 6.25 mg-10 mg/5 mL syrup RxNorm: 326580 5-10 Milliliter(s) PO Q6 as needed cough 02/25/2018 No Stop Date Active Zyrtec 5 mg tablet RxNorm: 9396681 1 Tablet(s) PO QAM 201703/11/2018 Active metoprolol succinate ER 100 mg tablet,extended release 24 hr RxNorm: 676454 2 Tablet(s) PO daily 02/25/2018 03/26/2018 Active Zyrtec-D 5 mg-120 mg tablet,extended release RxNorm: 1515238 1/2 Tablet(s) PO daily 02/25/2018 02/25/2018 Inactive aspirin 81 mg tablet RxNorm: 357112 2 Tablet(s) PO daily No Start Date Active amlodipine 5 mg tablet RxNorm: 420095 1 Tablet(s) PO daily No Start Date Active biotin 1 mg tablet RxNorm: 496476 1 Tablet(s) PO daily No Start Date Active omeprazole 20 mg tablet,delayed release RxNorm: 879114 1 Tablet(s) PO daily No Start Date Active simvastatin 20 mg tablet RxNorm: 631031 1 Tablet(s) PO daily No Start Date Active Multiple Vitamin, Womens tablet RxNorm: 2 gummy chews Tablet(s) PO daily No Start Date Active metformin 500 mg tablet RxNorm: 119143 3 Tablet(s) PO daily No Start Date Active losartan 100 mg-hydrochlorothiazide 25 mg tablet RxNorm: 747572 1 Tablet(s) PO daily No Start Date Active magnesium RxNorm: 1 PO daily No Start Date Active Vitamin D3 2,000 unit tablet RxNorm: 720935 1 Tablet(s) PO daily No Start Date Active potassium chloride ER 10 mEq capsule,extended release RxNorm: 435061 6 Capsule(s) PO daily No Start Date Active folic acid 0.8 mg capsule RxNorm: 601303 1 Capsule(s) PO daily No Start Date Active Phenergan-Codeine 6.25 mg-10 mg/5 mL syrup RxNorm: 819994 5-10 Milliliter(s) PO Q6 as needed cough No Start Date 2017 Inactive Medication Administered No Medication Administered data Immunizations No Immunization data Assessments Condition Codes Effective Dates Type 2 diabetes mellitus without complications ICD-10: [...] Code : 8480-6 BMI: 28.7 Code : 82053-5 Heart Rate 1 : 65 bpm Height: [...] data Encounters Encounter Performer Location Codes Date (42164) OFFICE VISIT, NEW - LEVEL 4 Diagnosis: Essential (primary) hypertension[ICD10: I10] Diagnosis: Type 2 diabetes mellitus without complications[ICD10: E11.9] Diagnosis: Cough[ICD10: R05] [facility] CPT-4: 84058 02/25/2018 Plan of Care Planned Activity Notes Codes Status Date Visit Plan: Hypertension - well controlled - [...] corcidin. 02/25/2018 [facility]ment[facility] [facility] [facility] 02/25/2018 Patient Education: Patient Medication Summary Completed 02/25/2018 Patient Education: Diabetes Completed 02/25/2018 [facility]ment: [facility] [facility] New Patient 02/03/2018 Instructions Comment cream with [...]
--- OUTSIDE RECORDS SUMMARY | 2018-06-10 13:05 | XMS REPORT | CCD ---
Author Author [facility]aire [facility] Organization [facility] Address [address] [place] [address] Phone Care Team Providers Care Commercial Credit Analyst Name Role Phone PP Unavailable CCM Unavailable Summary Purpose Interface Exchange Insurance Providers Payer name Policy type / Coverage type Covered green party ID Effective Begin Date Effective End Date WPS Medicare Part B Medicare Part B [id number] 2018 Unknown AETNA Medicare Part B [id number] Unknown Family history Sister Diagnosis Age At Onset Diabetes mellitus Type 2 Unknown Father Diagnosis Age At Onset Arthritis Unknown Mother Diagnosis Age At Onset Arthritis Unknown Social History Social History Element Codes Description Effective Dates Marital status Unknown Bill 02/25/2018 Number of children Unknown 2 3 pregnancies- 1 miscarriage 02/25/2018 Employment Unknown Retired 02/25/[address]: 312854519 Never smoker 02/25/[address]: 389826 Currently drinks alcohol 02/25/2018 Frequency of drinks SNOMED CT: 556344992 1-4 drinks per week 02/25/2018 Allergies, Adverse [...] Start Date Stop Date Status Fill Instructions Zyrtec-D 5 mg-120 mg tablet,extended release RxNorm: 7334074 1/2 Tablet(s) PO daily 02/25/2018 02/25/2018 Inactive Sudafed 30 mg tablet RxNorm: 0079455 1 Tablet(s) PO QAM 201703/11/2018 Active Phenergan-Codeine 6.25 mg-10 mg/5 mL syrup RxNorm: 132828 5-10 Milliliter(s) PO Q6 as needed cough 02/25/2018 No Stop Date Active Zyrtec 5 mg tablet RxNorm: 7915698 1 Tablet(s) PO QAM 201703/11/2018 Active metoprolol succinate ER 100 mg tablet,extended release 24 hr RxNorm: 108212 2 Tablet(s) PO daily 02/25/2018 03/26/2018 Active aspirin 81 mg tablet RxNorm: 074986 2 Tablet(s) PO daily No Start Date Active amlodipine 5 mg tablet RxNorm: 676065 1 Tablet(s) PO daily No Start Date Active biotin 1 mg tablet RxNorm: 410804 1 Tablet(s) PO daily No Start Date Active omeprazole 20 mg tablet,delayed release RxNorm: 816261 1 Tablet(s) PO daily No Start Date Active simvastatin 20 mg tablet RxNorm: 838853 1 Tablet(s) PO daily No Start Date Active Multiple Vitamin, Womens tablet RxNorm: 2 gummy chews Tablet(s) PO daily No Start Date Active metformin 500 mg tablet RxNorm: 320815 3 Tablet(s) PO daily No Start Date Active losartan 100 mg-hydrochlorothiazide 25 mg tablet RxNorm: 998097 1 Tablet(s) PO daily No Start Date Active magnesium RxNorm: 1 PO daily No Start Date Active Vitamin D3 2,000 unit tablet RxNorm: 110258 1 Tablet(s) PO daily No Start Date Active potassium chloride ER 10 mEq capsule,extended release RxNorm: 745658 6 Capsule(s) PO daily No Start Date Active folic acid 0.8 mg capsule RxNorm: 576051 1 Capsule(s) PO daily No Start Date Active Phenergan-Codeine 6.25 mg-10 mg/5 mL syrup RxNorm: 665689 5-10 Milliliter(s) PO Q6 as needed cough [...] legs at mid calf to ankles Procedures Procedure Codes Date PRESCRIP TRANSMIT VIA ERX SY CPT-4: G8553 02/25/2018 Vital Signs Date Vital 02/25/2018 Blood Pressure 1: 122/82 Code : 8480-6 BMI: 28.7 Code : 90246-4 Heart Rate 1 : 65 bpm Height: [...] data Encounters Encounter Performer Location Codes Date (77091) OFFICE VISIT, NEW - LEVEL 4 Diagnosis: Essential (primary) hypertension[ICD10: I10] Diagnosis: Type 2 diabetes mellitus without complications[ICD10: E11.9] Diagnosis: Cough[ICD10: R05] [facility] CPT-4: 04022 02/25/2018 Plan of Care Planned Activity Notes [...] legs. Congestion - use OTC corcidin. 02/25/2018 Patient Education: Patient Medication Summary Completed 02/25/2018 Patient Education: Diabetes Completed 02/25/2018 Appointment: Bl[facility] Box WPtel: [address] [place], [place] [id number] New Patient 02/03/2018 Instructions Comment cream with [...]
[2018-06-10] MEDS ORDERED: LACTATED RINGERS 1,000 ML IV STA (13:09)
[2018-06-10] MEDS ORDERED: HURRICAINE EXT TUBE (BENZOCAINE) XX PRN (13:15)
[2018-06-10] MEDS ORDERED: PROPOFOL INJECTION 50 ML IV ONE (13:28)
[2018-06-10] MEDS ORDERED: MIDAZOLAM 2 MG/2 ML (VERSED) VIAL ONE (13:28)
[2018-06-10 13:32] VITALS: BP 189/107
--- NOTE | 2018-06-10 13:37 | Progress Note-Pre Operative ---
Pre-Operative Progress Note H&P Reviewed The H&P was reviewed, patient examined and no changes noted. Date Seen by Provider: Jun 10, 2018 Time Seen by Provider: 13:37 Date H&P Reviewed: Jun 10, 2018 Time H&P Reviewed: 13:37 Pre-Operative Diagnosis: GERD CAREY LYNN DO Jun 10, 2018 13:37
[2018-06-10] MEDS ORDERED: HURRICAINE EXT TUBE (BENZOCAINE) ONE (14:00)
--- NOTE | 2018-06-10 14:19 | Progress Note-Post Operative ---
Post-Operative Progess Note Surgeon (s)/Net Developer Programmer (s) Surgeon CAREY LYNN DO Net Developer Programmer: na Pre-Operative Diagnosis GERD Post-Operative Diagnosis gastritis, hiatal hernia, esophageal stricture Procedure & Operative Findings Date of Procedure 06/10/18 Procedure Performed/Findings egd c biopsy Anesthesia Type per wig comber Estimated Blood Loss Estimated blood loss (mL): scant Specimens/Packing Specimens Removed antrum CAREY LYNN DO Jun 10, 2018 14:19
--- NOTE | 2018-06-10 14:20 | Anesthesia-General Post-Op ---
MAC Patient Condition Mental Status/LOC: Same as Preop Cardiovascular: Satisfactory Nausea/Vomiting: Absent Respiratory: Satisfactory Pain: Controlled Complications: Absent Post Op Complications Complications None Follow Up Care/Instructions Patient Instructions None needed. Anesthesiology Discharge Order Discharge Order Patient is doing well, no complaints, stable vital signs, no apparent adverse anesthesia problems. No complications reported per nursing. VERO SMALLS CRNA Jun 10, 2018 14:20
[2018-06-10] MEDS ORDERED: SUCR1TAB36 PO (14:22)
[2018-06-10] MEDS ORDERED: PANT40TA2 PO (14:22)
--- NOTE | 2018-06-10 14:23 | Discharge Inst-Simple/Standard ---
Discharge Inst-Standard Discharge Medications New, Converted or Re-Newed RX: Transmitted to Pharmacy Patient Instructions/Follow Up Plan of Care/Instructions/FU: 2 weeks maik Activity as Tolerated: Yes Discharge Diet: Soft Diet CAREY LYNN DO Jun 10, 2018 14:23
[2018-06-10 14:30] VITALS: BP 129/74
[2018-06-10 15:00] VITALS: BP 139/91
[2018-06-10 15:03] VITALS: BP 139/91
--- NOTE | 2018-06-10 22:27 | OPERATIVE REPORT ---
DATE OF SERVICE: 06/10/2018 PREOPERATIVE DIAGNOSIS: Gastroesophageal reflux disease. POSTOPERATIVE DIAGNOSES: Gastritis, hiatal hernia, esophageal stricture. PROCEDURE: EGD with biopsy. SURGEON: Carey Tsang DO ANESTHESIA: Per MODEL MAKER FIBERGLASS. ESTIMATED BLOOD LOSS: Scant. COMPLICATIONS: None. INDICATIONS: The patient is a 72-year-old female who has been having reflux symptoms and some dysphagia. She understands risks and benefits of procedure and wished to proceed with procedure. Consent was signed on the chart. DESCRIPTION OF PROCEDURE: The patient was taken to the endoscopy suite, placed in left lateral recumbent position. Timeout was performed. Scope was inserted through the mouth down the esophagus. In the distal portion, there is esophageal stricture, still large enough with the scope was able to be advanced through this area with some slight manipulation. Scope was inserted past the stricture into the stomach and into the duodenum without difficulty. There were no polyps, mass or ulceration of the duodenum. Scope was slowly retracted back into the stomach where there was some slight gastritis appearance was present for the antrum. Biopsy of the antrum was obtained. Scope was retroflexed noting a hiatal hernia. Also noting a stricture around the scope. The scope was then returned to its normal position, slowly withdrawn to the distal esophagus, which at the stricture site was started to bleed slightly due to dilating with the scope. Scope was slowly retracted back and slowly withdrawn until completely removed. The patient tolerated procedure well without any complications. She was taken to recovery room in stable condition. RECOMMENDATIONS: The patient will be started on Protonix and Carafate. The patient will be maintained on a soft diet and easily digestible diet. The patient will plan on repeat EGD and dilation of the distal esophagus in approximately 4 weeks allowing some inflammation and giving it time to heal from the scope dilatation. The patient will follow up in 2 weeks to discuss pathology and see how she is doing at that time. Job ID: [id number] DocumentID: [id number] Dictated Date: 06/10/2018 14:26:46 Stoker Installation Mechanic Date: 06/10/2018 22:27:11 Dictated By: CAREY TSANG DO
== END 2018-06-10 15:20 | disposition home or self-care (01) ==
LOC: ENDO 12:59
PROVIDERS: ATTEND Surgery
DX: K22.2 Esophageal obstruction (principal); K21.9 Gastro-esophageal reflux disease without esophagitis; K44.9 Diaphragmatic hernia without obstruction or gangrene; K29.70 Gastritis, unspecified, without bleeding; I10 Essential (primary) hypertension; E11.9 Type 2 diabetes mellitus without complications; Z79.82 Long term (current) use of aspirin; Z79.84 Long term (current) use of oral hypoglycemic drugs; Z79.899 Other long term (current) drug therapy

== ENCOUNTER 2018-07-15 05:41 | Outpatient (CLI) | payer MEDICARE ==
[~2018-07-15] VITALS: Ht 149.9 cm; Wt 63.5 kg
[~2018-07-15 05:41] MED LIST changes: +PANT40TA2 PO; +SUCR1TAB36 PO
== END 2018-07-15 14:37 | disposition home or self-care (01) ==
LOC: PREOP 05:41
PROVIDERS: ATTEND Surgery
DX: Z01.818 Encounter for other preprocedural examination (principal)

== ENCOUNTER 2018-07-22 07:26 | Day surgery (SDC) | payer MEDICARE, OTHER ==
[~2018-07-22] VITALS: Ht 149.9 cm; Wt 63.5 kg
[2018-07-22] MEDS ORDERED: LACTATED RINGERS 1,000 ML IV ONE (07:34)
[2018-07-22] MEDS ORDERED: LACTATED RINGERS 1,000 ML IV STA (07:38)
[2018-07-22] MEDS ORDERED: HURRICAINE EXT TUBE (BENZOCAINE) XX PRN (07:45)
[2018-07-22 07:57] VITALS: BP 176/95
[2018-07-22] MEDS ORDERED: proPOfol 200 MG/20 ML (DIPRIVAN) VIAL IV ONE (08:18)
--- NOTE | 2018-07-22 08:29 | Progress Note-Pre Operative ---
Pre-Operative Progress Note H&P Reviewed The H&P was reviewed, patient examined and no changes noted. Date Seen by Provider: Jul 22, 2018 Time Seen by Provider: 08:28 Date H&P Reviewed: Jul 22, 2018 Time H&P Reviewed: 08:28 Pre-Operative Diagnosis: gastritis, esophageal stricture CAREY LYNN DO Jul 22, 2018 08:29
--- OUTSIDE RECORDS SUMMARY | 2018-07-22 08:37 | XMS REPORT | CCD ---
Author Author [facility] Organization [facility] Address [address] [place] [address] Phone Care Team Providers Care Drywall Taper Helper Name Role Phone PP Unavailable CCM Unavailable Summary Purpose Interface Exchange Insurance Providers Payer name Policy type / Coverage type Covered libertarian ID Effective Begin Date Effective End Date WPS Medicare Part B Medicare Part B [id number] 2018 Unknown AETNA Medicare Part B [id number] Unknown Family history Sister Diagnosis Age At Onset Diabetes mellitus Type 2 Unknown Father Diagnosis Age At Onset Arthritis Unknown Mother Diagnosis Age At Onset Arthritis Unknown Social History Social History Element Codes Description Effective Dates Marital status Unknown Bill 02/25/2018 Number of children Unknown 2 3 pregnancies- 1 miscarriage 02/25/2018 Employment Unknown Retired 02/25/[address]: 415606653 Never smoker 02/25/[address]: 106574 Currently drinks alcohol 02/25/2018 Frequency of drinks SNOMED CT: 954730484 1-4 drinks per week 02/25/2018 Allergies, Adverse [...] chloride ER 10 mEq capsule,extended release RxNorm: 083003 6 Capsule(s) PO daily except Mon and Fri take 7 05/28/2018 No Stop Date Active Phenergan-Codeine 6.25 mg-10 mg/5 mL syrup RxNorm: 018272 5-10 Milliliter(s) PO Q6 as needed cough 02/25/2018 No Stop Date Active metoprolol succinate ER 100 mg tablet,extended release 24 hr RxNorm: 569109 2 Tablet(s) PO daily 02/25/2018 03/26/2018 Inactive Zyrtec-D 5 mg-120 mg tablet,extended release RxNorm: 9080268 1/2 Tablet(s) PO daily 02/25/2018 02/25/2018 Inactive Sudafed 30 mg tablet RxNorm: 6843249 1 Tablet(s) PO QAM 201703/11/2018 Inactive Zyrtec 5 mg tablet RxNorm: 5716743 1 Tablet(s) PO QAM 201703/11/2018 Inactive aspirin 81 mg tablet RxNorm: 154503 2 Tablet(s) PO daily No Start Date Active amlodipine 5 mg tablet RxNorm: 409285 1 Tablet(s) PO daily No Start Date Active biotin 1 mg tablet RxNorm: 811719 1 Tablet(s) PO daily No Start Date Active omeprazole 20 mg tablet,delayed release RxNorm: 196684 1 Tablet(s) PO daily No Start Date Active simvastatin 20 mg tablet RxNorm: 356728 1 Tablet(s) PO daily No Start Date Active Multiple Vitamin, Womens tablet RxNorm: 2 gummy chews Tablet(s) PO daily No Start Date Active metformin 500 mg tablet RxNorm: 018125 3 Tablet(s) PO daily No Start Date Active losartan 100 mg-hydrochlorothiazide 25 mg tablet RxNorm: 559964 1 Tablet(s) PO daily No Start Date Active magnesium RxNorm: 1 PO daily No Start Date Active Vitamin D3 2,000 unit tablet RxNorm: 982713 1 Tablet(s) PO daily No Start Date Active folic acid 0.8 mg capsule RxNorm: 697124 1 Capsule(s) PO daily No Start Date Active Phenergan-Codeine 6.25 mg-10 mg/5 mL syrup RxNorm: 609904 5-10 Milliliter(s) PO Q6 as needed cough No Start Date 2017 Inactive potassium chloride ER 10 mEq capsule,extended release RxNorm: 183723 6 Capsule(s) PO daily No Start Date [...] Observation Code Item Item Code Result Date Electrolytes Ord62 NA 140 mEq/L 06/17/2018 Electrolytes Ord62 K 3.3 mEq/L 06/17/2018 Electrolytes Ord62 CL 103 mEq/L 06/17/2018 Electrolytes Ord62 CO2 30.0 mEq/L 06/17/2018 Electrolytes Ord62 ANION GAP 10 06/17/2018 Tsh Ord6 TSH (3rd IS) 1.15 uIU/mL 05/23/2018 Lipid Ord30 CHOL 153 mg/dL 05/23/2018 Lipid Ord30 HDL 51.0 mg/dl 05/23/2018 Lipid Ord30 TRIG 166 mg/dL 05/23/2018 Lipid Ord30 LDL 69 mg/dL 05/23/2018 Lipid Ord30 C/HDL 3.0 Ratio 05/23/2018 Comp Metabolic Ukg609 NA 142 mEq/L 05/23/2018 Comp Metabolic Ctd767 K 3.2 mEq/L 05/23/2018 Comp Metabolic Kim924 CL 103 mEq/L 05/23/2018 Comp Metabolic Jfs299 CO2 29.0 mEq/L 05/23/2018 Comp Metabolic Yzf041 ANION GAP 13 05/23/2018 Comp Metabolic Diz846 GLUCOSE 132 mg/dL 05/23/2018 Comp Metabolic Cen640 Creat 0.6 mg/dL 05/23/2018 Comp Metabolic Lec375 eGFR 108 ml/min/1.73m2 05/23/2018 Comp Metabolic Drj941 BUN 14 mg/dL 05/23/2018 Comp Metabolic Xgh514 B/C Ratio 24.1 Ratio 05/23/2018 Comp Metabolic Wzc224 CALCIUM 9.3 mg/dL 05/23/2018 Comp Metabolic Yzl281 ALK PHOS 57 U/L 05/23/2018 Comp Metabolic Lee100 AST(SGOT) 17 U/L 05/23/2018 Comp Metabolic Hsg683 ALT(SGPT) 17 U/L 05/23/2018 Comp Metabolic Baa033 BILI T 0.8 mg/dL 05/23/2018 Comp Metabolic Vgw817 ALBUMIN 4.5 g/dL 05/23/2018 Comp Metabolic Nzf351 TPRO 6.8 g/dL 05/23/2018 Comp Metabolic Jsx661 GLOB 2.3 g/dL 05/23/2018 Comp Metabolic Hdf135 A/G Ratio 2.0 Ratio 05/23/2018 Comp Metabolic Xdp892 Osmo 285 mOsmo 05/23/2018 Cbc With Differential Ord2 WBC 4.73 K/ul 05/23/2018 Cbc With Differential Ord2 RBC 4.03 M/ul 05/23/2018 Cbc With Differential Ord2 HGB 13.5 g/dl 05/23/2018 Cbc With Differential Ord2 HCT 39.2 % 05/23/2018 Cbc With Differential Ord2 Neut% 51.2 % 05/23/2018 Cbc With Differential Ord2 MCV 97.3 fl 05/23/2018 Cbc With Differential Ord2 Lymph% 33.4 % 05/23/2018 Cbc With Differential Ord2 [place]% 11.0 % 05/23/2018 Cbc With Differential Ord2 MCH 33.5 pg 05/23/2018 Cbc With Differential Ord2 Eos% 4.0 % 05/23/2018 Cbc With Differential Ord2 MCHC 34.4 pg 05/23/2018 Cbc With Differential Ord2 Baso% 0.4 % 05/23/2018 Cbc With Differential Ord2 PLT 228 K/ul 05/23/2018 Cbc With Differential Ord2 RDW 12.6 % 05/23/2018 Cbc With Differential Ord2 Neut ABS# 2.42 K/ul 05/23/2018 Cbc With Differential Ord2 Lymph ABS# 1.58 K/ul 05/23/2018 Cbc With Differential Ord2 [place] ABS# 0.5 K/ul 05/23/2018 Cbc With Differential Ord2 Eos ABS# 0.2 K/ul 05/23/2018 Cbc With Differential Ord2 Baso ABS# 0.0 K/ul 05/23/2018 %Hba1C Xnh257 % HbA1c 06336-1 6.1 % 05/23/2018 %Hba1C Urb852 Gluc Ave 128 mg/dL 05/23/2018 Microalbumin Vnh872 MicroAlb 4.7 mg/dL 05/23/2018 Review of Systems [...] Code : 8480-6 BMI: 28.7 Code : 42441-9 Heart Rate 1 : 72 bpm Height: 4'11" SpO2: 97% Weight: 142 lbs 02/25/2018 Blood Pressure 1: 122/82 Code : 8480-6 BMI: 28.7 Code : 35705-2 Heart Rate 1 : 65 bpm Height: [...] Encounters Encounter Performer Location Codes Date () 50803 EST. PATIENT, LEVEL III Diagnosis: Dysphagia, pharyngoesophageal phase[ICD10: R13.14] Blaire Box MD, [facility] CPT-4: 58664 05/22/2018 ([id number]) Miscellaneous no charge Diagnosis: Impacted cerumen, right ear[ICD10: H61.21] [facility] Box MD, [facility] CPT-4: 81833 02/26/2018 ([id number]) OFFICE VISIT, NEW - LEVEL 4 Diagnosis: Essential (primary) hypertension[ICD10: I10] Diagnosis: Type 2 diabetes mellitus without complications[ICD10: E11.9] Diagnosis: Cough[ICD10: R05] Blaire Box MD, [facility] CPT-4: 09497 02/25/2018 Plan of Care Planned Activity Notes Codes Status Date Visit Plan: Dysphagia - worse with bolus of food - I have recommended a referral to Dr. Tsang for EGD, continue with PPI. 05/22/2018 Appointment: Blaire Box WPtel: [address] [place], [place] [id number] (15 min) Moderate 05/22/2018 Patient Education: Patient [...] 02/25/2018 [facility] [address] [facility] [place] New Patient 02/25/2018 Patient Education: Patient Medication Summary Completed 02/25/2018 Patient Education: Diabetes Completed 02/25/2018 [facility] [address] [facility] [place] New Patient 02/03/2018 Instructions Comment cream [...]
--- NOTE | 2018-07-22 08:49 | Progress Note-Post Operative ---
Post-Operative Progess Note Surgeon (s)/Trimmer Meat (s) Surgeon CAREY LYNN DO Trimmer Meat: na Pre-Operative Diagnosis gastritis, esophageal stricture Post-Operative Diagnosis hiatal hernia, schotski's ring Procedure & Operative Findings Date of Procedure 07/22/18 Procedure Performed/Findings egd c biopsies Anesthesia Type per php architect Estimated Blood Loss Estimated blood loss (mL): min Specimens/Packing Specimens Removed antrum, ge CAREY LYNN DO Jul 22, 2018 08:49
--- NOTE | 2018-07-22 08:51 | Discharge Inst-Simple/Standard ---
Discharge Inst-Standard Patient Instructions/Follow Up Plan of Care/Instructions/FU: 2-3 weeks [place] Activity as Tolerated: Yes Discharge Diet: Regular Diet CAREY LYNN DO Jul 22, 2018 08:51
[2018-07-22 09:00] VITALS: BP 124/71
[2018-07-22 09:30] VITALS: BP 144/89
[2018-07-22 09:35] VITALS: BP 144/89
--- NOTE | 2018-07-22 09:35 | NUR ---
HAS BEEN ALERT, CHEERFUL AND DENIES PAIN THROUGHOUT RECOVERY. TAKING PO FLUIDS WITHOUT PROBLEM. STATES SHE IS READY FOR DISMISSAL.
--- NOTE | 2018-07-22 11:04 | Anesthesia-General Post-Op ---
MAC Patient Condition Mental Status/LOC: Same as Preop Cardiovascular: Satisfactory Nausea/Vomiting: Absent Respiratory: Satisfactory Pain: Controlled Complications: Absent Post Op Complications Complications None Follow Up Care/Instructions Patient Instructions None needed. Anesthesiology Discharge Order Discharge Order Patient is doing well, no complaints, stable vital signs, no apparent adverse anesthesia problems. No complications reported per nursing. PETTY FUENTES CRNA Jul 22, 2018 11:04
--- NOTE | 2018-07-22 13:36 | OPERATIVE REPORT ---
DATE OF SERVICE: 07/22/2018 PREOPERATIVE DIAGNOSES: Esophageal stricture, gastritis, hiatal hernia. POSTOPERATIVE DIAGNOSES: Hiatal hernia, Schatzki's ring. PROCEDURE: EGD with biopsy. SURGEON: Carey Tsang DO. ANESTHESIA: Per SENIOR MAINFRAME DEVELOPER. ESTIMATED BLOOD LOSS: None. COMPLICATIONS: None. INDICATIONS: The patient is a 72-year-old female with esophageal stricture who had dilatation with the scope at that time. The patient was started on Protonix and Carafate. The patient was discussed risks and benefits of reexamining the area and possible dilatation. The patient understands risks and benefits and wishes to proceed. Consent was signed in the chart. PROCEDURE IN DETAIL: The patient was taken to endoscopy suite, placed in left lateral recumbent position. Timeout was performed. Scope was inserted into the mouth, down the esophagus, stomach and into the duodenum without difficulty. There were no polyps, masses or ulcerations within the duodenum. Scope was slowly retracted back into the stomach where it was further insufflated. Minimal erythematous changes present. Biopsy was obtained. Scope was retroflexed noting a hiatal hernia. No other pathology. Scope was returned to its normal position, slowly withdrawn. In the distal esophagus, Schatzki's ring present and some slight erythematous changes. Biopsy of the GE junction was obtained. The distal esophagus has no significant stricture at this time. Scope was then slowly retracted back until completely removed, noting no other pathology. RECOMMENDATIONS: The patient to continue on current medications. Follow up on biopsies in approximately 2 to 3 weeks. If she has return of the difficulty swallowing, she should be reexamined at that time. Job ID: [id number] DocumentID: [id number] Dictated Date: 07/22/2018 08:54:03 Vp Digital Marketing Social Media And Crm Date: 07/22/2018 13:35:42 Dictated By: CAREY TSANG DO
== END 2018-07-22 09:35 | disposition home or self-care (01) ==
LOC: ENDO 07:26
PROVIDERS: ATTEND Surgery
DX: K22.2 Esophageal obstruction (principal); K44.9 Diaphragmatic hernia without obstruction or gangrene; I10 Essential (primary) hypertension; E11.9 Type 2 diabetes mellitus without complications; Z79.82 Long term (current) use of aspirin; Z79.84 Long term (current) use of oral hypoglycemic drugs; Z79.899 Other long term (current) drug therapy

== ENCOUNTER 2021-05-05 09:16 | Outpatient (CLI) | payer MEDICARE, OTHER ==
[~2021-05-05] VITALS: Ht 152.4 cm; Wt 64.8 kg
[~2021-05-05 09:16] MED LIST changes: +AMLO-250 PO; -AMLO5TAB9 PO; -FOLI0.8T PO; +FOLI0.8T4 PO; -METO-395 PO; +MTP100TCR PO; +SIMV20TA26 PO; -SIMV20TA3 PO
[2021-05-05] MEDS ORDERED: SOTROVIMAB 500 MG/NS 100 ML IVPB IV ONE ×2 (09:45)
[2021-05-05] MEDS ORDERED: ACETAMINOPHEN 500 MG TAB (TYLENOL) PO PRN (09:45)
[2021-05-05] MEDS ORDERED: EPINEPHrine INJECTION 1 MG/ML AMP IM PRN (09:45)
[2021-05-05] MEDS ORDERED: diphenhydrAMINE 50 MG/ML INJ (BENADRYL) IV PRN (09:45)
[2021-05-05] MEDS ORDERED: ONDANSETRON 4 MG/2 ML (SDV) Z0FRAN IV PRN (09:45)
[2021-05-05 10:24] VITALS: BP 137/96
[2021-05-05 10:30] VITALS: BP 127/66
== END 2021-05-05 11:25 ==
LOC: INFUSION 09:16
PROVIDERS: ATTEND Nurse Practitioner Family
DX: U07.1 COVID-19 (principal)